=== PATIENT | male | born 1940 | race Caucasian/White ===

== ENCOUNTER 2016-07-21 17:23 | Emergency (ER) | payer MEDICARE, OTHER ==
[~2016-07-21 17:23] MED LIST: LIDOCAINE 2% JELLY GLYDO 6 ML TOPICAL ONE
[2016-07-21] MEDS ORDERED: SODIUM CHLORIDE 0.9% 1,000 ML ONE (19:03)
== END 2016-07-21 19:44 | disposition home or self-care (01) ==
LOC: ER 17:23
CPT/HCPCS: 51702 ×2; 81001 ×2; 87088 ×2; 99283; C1769